=== PATIENT | female | born 1990 | race Caucasian/White ===

== ENCOUNTER → 2018-03-27 08:46 | Outpatient (CLI) | payer OTHER, MEDICAID, SELFPAY ==
--- NOTE | 2018-03-27 | DI.US.S_ITS ---
PROCEDURE: US OB >= 14 WEEKS FETUS INDICATIONS: 20 WEEK ANATOMY OUTSIDE/PRIOR DATING DATA: Last menstrual period (LMP): 10/26/2017. LMP-based estimated date of delivery (CHAD): 08/02/2018. First dating scan (date and location): 12/22/2017. Estimated date of delivery (CHAD) from first dating scan: 08/05/2018. TECHNIQUE: Real-time scanning was performed of the fetus, with image documentation and biometric measurements. Endovaginal scanning: None required COMPARISON: [facility], , OB COMPLETE 14WKS OR MORE, 02/06/2018, 8:26. [facility], , OB COMPLETE 14WKS OR MORE, 03/01/2018, 11:28. FINDINGS: General: A single living intrauterine gestation is present. Presentation: Vertex. Placenta: Placental position is anterior, without previa. Amniotic fluid index: 14.2 cm, normal range is 5-24 cm. heart rate: 165 beats per minute. Maternal cervical canal: 4.0 cm long. Normal lower limit is 2.5 cm. biometrics: Biparietal diameter: 21 weeks 6 days Head circumference: 21 weeks 4 days Abdominal circumference: 21 weeks 5 days Femur length: 21 weeks 3 days Estimated gestational age from initial scan: 21 weeks 2 days Composite gestational age from present scan: 21 weeks 5 days, normal growth Estimated weight and percentile: 436 g at the 62nd percentile Measurement variability for biometric dating: +/- 7 days from 14 weeks to 15 weeks 6 days gestation, +/- 10 days from 16 weeks to 21 weeks 6 days gestation, +/- 2 weeks from 22 weeks to 27 weeks 6 days gestation, +/- 3 weeks for 28 weeks gestation or later. weight reference: 4500 g or EFW >90/95% is considered macrosomia or large for gestational age. EFW <10% is small for gestational age. EFW 5% or less is considered intra-uterine growth restriction. Anatomic survey: Neuro: Ventricles are non-dilated at less than 10 mm. Cisterna magna is normal at 3-11 mm. Cerebellum is normal in size and morphology. Nuchal skin fold: Normal at less than 6 mm between 14-21 weeks gestational age. Face: Nose and lips, facial profile are normal. Spine: No evidence for spina bifida. Heart: 4-chambered heart is present, with normal ventricular outflow tracts. Diaphragm: Diaphragm is intact. Stomach: Left-sided stomach is present. Kidneys: No hydronephrosis. Normal is less than 5 mm in 2nd trimester, less than 7 mm in 3rd trimester. Cord: 3-vessel cord has orthotopic insertion. Bladder: Normal in size. Extremities: All 4 extremities identified. IMPRESSION: Single, live intrauterine gestation at 21 weeks 5 days gestational age, normal growth and normal anatomy. heart rate 165 bpm. Dictated by: Colin Rebollar M.D. on 03/27/2018 at 10:47 Approved by: Colin Rebollar M.D. on 03/27/2018 at 10:51
== END ==
PROVIDERS: PCP Specialist; Visit Provider Specialist
DX: Z34.92 Encounter for supervision of normal pregnancy, unspecified, second trimester (principal); Z3A.21 21 weeks gestation of pregnancy
CPT/HCPCS: 76811

== ENCOUNTER → 2018-05-05 11:44 | Outpatient (CLI) | payer OTHER, MEDICAID, SELFPAY ==
[2018-05-05 13:41] LABS: Hematocrit 33.7 % (36-46); Hemoglobin 10.7 g/dL (12.0-16.0)
[2018-05-05 15:50] LABS: GTT (PREG) 1 Hour PP 50gm Dose 87 mg/dL (76-139)
== END ==
PROVIDERS: PCP Specialist; Visit Provider Specialist
DX: Z3A.26 26 weeks gestation of pregnancy (principal)
CPT/HCPCS: 36415; 82950; 85014; 85018

== ENCOUNTER → 2018-07-05 13:49 | Outpatient (CLI) | payer OTHER, MEDICAID, SELFPAY ==
[2018-07-06 12:26] LABS: Strep Grp B PCR NEG for Grp B Strep
== END ==
PROVIDERS: PCP Specialist; Visit Provider Specialist
DX: Z3A.36 36 weeks gestation of pregnancy (principal)
CPT/HCPCS: 87653

== ENCOUNTER → 2018-07-12 12:37 | Outpatient (CLI) | payer OTHER, MEDICAID, SELFPAY | PROVIDERS: PCP Specialist; Visit Provider Specialist | DX: R35.0 Frequency of micturition (principal); R68.89 Other general symptoms and signs | CPT/HCPCS: 87086 ==

== ENCOUNTER 2018-07-28 11:24 | Inpatient (IN) | payer OTHER, MEDICAID, SELFPAY ==
[2018-07-28] MEDS: LACTATED RINGERS 1,000 ML 100 ML IV ×2 (12:00→16:46)
--- NOTE | 2018-07-28 12:48 | PM.OBHP.1 ---
OB HPI Date/Time Date of admission: 07/28/18 Date Patient Seen: 07/28/18 Time Patient Seen: 12:52 History of Present Condition Chief complaint: repeat c section 79061 : 3 Para: 1 Estimated Date of Delivery: 08/02/18 Estimated Gestational Age (weeks): 39 Narrative: Alannah Lala is a 28 year old female here for repeat section Indications Operative indications ( section): previous uterine surgery History of Present care: good care Dating criteria: LMP confirmed by 1st trimester US Ultrasounds: normal mid trimester US Obstetrical complications: none Medical complications: none Preadmission Labs Blood type: AB (+) positive -: Antibody screen: negative, GBS status: negative, HBsAG: negative, HIV: negative and RPR/VDLR: negative -: Chlamydia screen: not detected and Gonorrhea screen: not detected -: Rubella: immune PAP: Normal 1 hr GTT: 87 Prior (ies) History: 09/13/07 41 weeks failure to progress section 2017 SAB Evaluation Evaluation Baseline heart rate: 130 Variability: Moderate (11-25) monitor accelerations: Present monitor decelerations: Absent Contraction Frequency (minutes): 5 Uterine Contraction Intensity: Mild Category of Tracing: I PFSH Medical History Cholecystitis (Chronic) Surgical History History of section (Chronic) Meds Allergies Allergy/AdvReac Type Severity Reaction Status Date / Time No Known Allergies Allergy Uncoded 02/15/18 13:04 Review of Systems Review of Systems All systems reviewed & are unremarkable except as noted in HPI and below Exam Vital Signs (past 8 hours): Blood pressure 134/76, pulse of 96, temperature 97? Narrative Exam Narrative: HEENT exam within normal limits. Lungs are clear to auscultation percussion. Heart is regular rate and rhythm no S3-S4 or murmurs. Abdomen is gravid and nontender. Fundal height 39 cm. Extremities with 1+ edema. Nontender. Normal DTRs. Assessment and Plan (1) 39 weeks gestation of : Current visit: Yes Status: Acute (2) History of section, low transverse: Onset Date: 02/06/18 Current visit: No Status: Chronic Plan: Plan: Thirty-nine week gestation with prior section here for repeat section.
[2018-07-28 13:10] LABS: Add Manual Diff / Slide Review NO; Basophils Percent Auto 0.2 % (0-2); Eosinophils Percent Auto 1.5 % (2-4); Hematocrit 30.9 % (36-46); Hemoglobin 9.7 g/dL (12.0-16.0); Lymphocytes Percent Auto 16.2 % (25-40); Mean Corpuscular HGB Conc 31.2 % (30-36); Mean Corpuscular Volume 80.2 fL (80-100); Monocytes Percent Auto 7.2 % (3-14); Neutrophils Absolute Auto 7600 /uL (3000-5900); Neutrophils Percent Auto 74.9 % (50-75); Platelet Count 239 X10^3/uL (150-400); Red Blood Cell Count 3.86 X10^6/uL (4.0-5.2); Red Cell Distribution Width 16.9 % (11.6-14.8); White Blood Cell Count 10.1 X10^3/uL (4.5-11.0)
[2018-07-28] MEDS: CEFAZOLIN 2 GM/100 ML FROZ.PIGGY IV (13:12)
[2018-07-28] MEDS: LACTATED RINGERS 1,000 ML 42 ML IV (13:15)
--- NOTE | 2018-07-28 13:41 | SUR.OPER ---
Supine on Padded OR bed, head on pillow, safety belt at thigh, arms secured on padded arm boards at <90 degrees abduction. Bump under right buttock. Legs uncrossed with pillow under knees, gel pad to heels, tape over blanket to lower legs.
--- NOTE | 2018-07-28 14:00 | RT ---
I attended C section. The did not need any intervention by me.
[2018-07-28 14:14] VITALS: BP 110/73; PULSE 114; RESP 14; TEMP 36; O2SAT 99
[2018-07-28 14:19] VITALS: BP 104/66; PULSE 97; RESP 10; O2SAT 99
[2018-07-28 14:24] VITALS: BP 102/71; PULSE 96; RESP 13; O2SAT 100
[2018-07-28 14:29] VITALS: BP 111/74; PULSE 94; RESP 12; O2SAT 99
[2018-07-28] MEDS: ONDANSETRON 4 MG/2 ML INJ IV (16:00)
--- NOTE | 2018-07-28 16:07 | P.OP_ITS ---
Operative Date/Time/Diagnoses Date of procedure: 07/28/18 Time of procedure: 13:30 Pre-op diagnosis: Thirty-nine weeks with prior section Post-op diagnosis: same Procedure & Clinicians Procedure: Repeat low-transverse section Same procedure as scheduled: Yes Indications: Term with prior section Surgeon: Jann[facility] Social Worker: Mehnaz Kraft Anesthesia Type: Spinal Operative Notes Findings: Normal tubes ovaries and uterus, viable male weighing 8 lb 4 oz with Apgars of 8 and 9 Closure Type: primary Specimen(s): none sent Applied: catheter (Schmitz) Estimated Blood Loss (mL): 200 Blood products transfused: none Procedure in detail: The patient was brought to the operating room where she underwent a spinal for anesthesia. She was placed in a supine position with a left lateral tilt. A Schmitz catheter was placed. Pulsatile stockings were placed and functional throughout the case. 2 g of Ancef were given IV prior to the incision. Warming was in place. The patient was prepped and draped in usual sterile fashion. A low transverse incision was made with a scalpel and the incision was carried down to the fascial layer which was incised transversely with scissors. The midline attachments are superiorly and inferiorly. Some bleeding was controlled Bovie. The rectus muscles were in the midline and the peritoneal incision was made with no damage to internal structures. The peritoneum was incised and superiorly and inferiorly. Bladder blade was placed and a bladder flap was developed and the bladder held away from the lower uterine segment. An incision was made in the uterus with the scalpel and the incision was extended with stretching. The head was elevated out of the abdomen and with fundal pressure the baby was delivered. The was bulb suctioned for clear fluid and handed off to the warmer. Cord blood was collected. The placenta delivered spontaneously with traction. The uterus was cleaned with clean laps. The uterine incision was closed in 2 layers of 0 chromic suture the first a running locking layer the second an imbricating layer. The bladder peritoneum was repaired with 2-0 Polysorb suture. The gutters were cleaned of any remaining fluids and ovaries and tubes were observed to be normal. Adequate hemostasis was noted. The perineum was closed with 2-0 Polysorb suture. The fascia layer was closed with 0 Polysorb suture with 2 stitches. The incision was irrigated and adequate hemostasis noted. The incision was closed with interrupted 3-0 Polysorb sutures and then a subcuticular stitch of 4-0 Polysorb suture. Steri-Strips were placed. The uterus was massaged to remove any clots. The patient went to recovery room in good condion. Counts of instruments and sponges were correct. Condition: stable Disposition: Acute Care Plan for aftercare: Routine post section
[2018-07-28] MEDS: METOCLOPRAMIDE 10 MG/2 ML INJ IV (16:38)
[2018-07-28 17:28] VITALS: BP 116/69
[2018-07-28 20:12] VITALS: TEMP 36.8
[2018-07-28] MEDS: KETOROLAC 30 MG/ML VIAL IV (20:12)
[2018-07-29] MEDS: KETOROLAC 30 MG/ML VIAL IV ×2 (02:27→08:50)
[2018-07-29] MEDS: OXYCODONE/ACETAMINOPHEN 5/325 TABLET 1 TAB PO (02:28)
[2018-07-29 07:17] LABS: Add Manual Diff / Slide Review NO; Basophils Percent Auto 0.3 % (0-2); Eosinophils Percent Auto 1.5 % (2-4); Hematocrit 26.3 % (36-46); Hemoglobin 8.4 g/dL (12.0-16.0); Lymphocytes Percent Auto 15.3 % (25-40); Mean Corpuscular HGB Conc 31.8 % (30-36); Mean Corpuscular Hemoglobin 25.1 PG (26-34); Monocytes Percent Auto 9.9 % (3-14); Neutrophils Absolute Auto 8300 /uL (3000-5900); Platelet Count 214 X10^3/uL (150-400); Red Blood Cell Count 3.33 X10^6/uL (4.0-5.2); Red Cell Distribution Width 16.9 % (11.6-14.8); White Blood Cell Count 11.4 X10^3/uL (4.5-11.0)
[2018-07-29] MEDS: DOCUSATE 250 MG CAPSULE PO (08:52)
[2018-07-29 15:58] VITALS: BP 116/69; PULSE 94; RESP 17; TEMP 36.8
[2018-07-29] MEDS: IBUPROFEN 600 MG TABLET PO (16:46)
== END 2018-07-29 17:35 | disposition home or self-care (01) | DRG 540 ==
PROVIDERS: Admitting Provider Specialist; PCP Specialist; Visit Provider Specialist
PROC: 10D00Z1 Extraction of Products of Conception, Low, Open Approach (ICD-10-PCS; CPT 59514; principal; 2018-07-28 13:30)
DX: O34.211 Maternal care for low transverse scar from previous cesarean delivery (principal); Z3A.39 39 weeks gestation of pregnancy; Z37.0 Single live birth
CPT/HCPCS: 36415; 59050; 59514; 85025; 86850; 86900; 86901; J0690; J1885; J2274; J2405; J2590; J2765

== ENCOUNTER 2019-05-10 13:56 | Emergency (ER) | payer OTHER, MEDICAID, SELFPAY ==
[2019-05-10 14:00] VITALS: BP 109/76; PULSE 76; RESP 19; TEMP 36.7; O2SAT 99; BMI 33.3
--- NOTE | 2019-05-10 14:03 | DI.RAD.S_ITS ---
PROCEDURE: XR ELBOW RT MIN 3V INDICATIONS: fall pain TECHNIQUE: 3 views of the elbow were acquired. COMPARISON: None. FINDINGS: Bones: Acute spiral fracture involving distal humeral shaft is seen with dorsal displacement at fracture site. No elbow fracture or dislocation. No suspicious bony lesions. Soft tissues: No elbow joint effusion. No suspicious soft tissue calcifications. IMPRESSION: Acute displaced spiral fracture involving distal humeral shaft. Dictated by: Shamar Mayfield M.D. on 05/10/2019 at 13:34 Approved by: Shamar Mayfield M.D. on 05/10/2019 at 13:35
--- NOTE | 2019-05-10 14:03 | DI.RAD.S_ITS ---
PROCEDURE: XR SHOULDER RT MIN 2V INDICATIONS: pain fall TECHNIQUE: 3 views of the shoulder were acquired. COMPARISON: None. FINDINGS: Bones: No fractures or dislocations. No suspicious bony lesions. Visualized ribs appear intact. Soft tissues: No suspicious soft tissue calcifications. IMPRESSION: No acute shoulder fracture or dislocation. Dictated by: Shamar Mayfield M.D. on 05/10/2019 at 13:33 Approved by: Shamar Mayfield M.D. on 05/10/2019 at 13:34
--- NOTE | 2019-05-10 14:05 | ED.UPPEXIN ---
HPI - Extremity Injury (Upper) General Chief Complaint: Extremity Injury, Upper Stated Complaint: tripped and fell,cannot move arm/shoulder R side Time Seen by Provider: 05/10/19 14:03 Source: patient Mode of arrival: ambulatory Limitations: no limitations History of Present Illness HPI narrative: Patient is a 28-year-old who presents after a ground level fall with right shoulder and right elbow pain. She tripped going up a stair. Fell with a hand stretched out. It hurts whenever she supinates or pronates also having pain on her shoulder. No numbness or tingling. She is currently breast-feeding. Related Data Previous Rx's Medication Instructions Recorded docusate sodium 250 mg PO DAILY #20 cap 07/29/18 ferrous gluconate 324 mg PO DAILY #30 tab 07/29/18 ibuprofen 600 mg PO Q6HR PRN #30 tab 07/29/18 oxycodone-acetaminophen 2 tab PO Q4HR PRN #30 tab 07/29/18 metoclopramide 5 mg tablet 5 mg PO TID #30 tab 10/02/18 hydrocodone-acetaminophen [[place]] 1 tab PO Q4-6H PRN #14 tab 05/10/19 Allergies Allergy/AdvReac Type Severity Reaction Status Date / Time No Known Allergies Allergy Uncoded 02/15/18 13:04 Review of Systems Review of Systems GENERAL: Denies chills,fever HEENT: Denies throat pain RESPIRATORY: Denies dyspnea, cough, wheezing CARDIOVASCULAR: Denies chest pain, palpitations GASTROINTESTINAL: Denies nausea, vomiting MUSCULOSKELETAL: See HPI SKIN: No rash, no laceration, no pruritus NEUROLOGIC: Denies weakness, dizziness, headache, numbness 8 point review of systems is negative except for those stated above and HPI PFSH Medical History (Updated 05/10/19 @ 15:58 by Lilo Hdz DO) Cholecystitis (Chronic) Surgical History (Updated 07/28/18 @ 12:59 by Janneth Dueñas MD) History of section (Chronic) Social History Smoking Status: Never smoker Social History Smoking Status: Never smoker Exam Initial Vital Signs Initial Vital Signs: Vital Signs Temperature 98.1 F 05/10/19 14:00 Pulse Rate 76 05/10/19 14:00 Respiratory Rate 19 05/10/19 14:00 Blood Pressure 109/76 05/10/19 14:00 Pulse Oximetry 99 05/10/19 14:00 GENERAL: Well-appearing, well-nourished and in no acute distress. CARDIOVASCULAR: peripheral pulses in tact, cap refill <2 sec RESPIRATORY: No respiratory distress, speaks in full sentences without difficulty EXTREMITIES: Normal range of motion, no clubbing or edema. Neurovascularly intact Right upper extremity no gross bony deformity tender superior epicondyles no contusion or erythema pain with supination pronation. Neurovascularly intact. Able flex and extend wrist good abduction of fingers. Taste Tester strength equal bilaterally. Shoulder AC area tender but no step-offs sensation over the deltoid intact. NEUROLOGICAL: Cranial nerves II through XII grossly intact. Normal gait and speech. SKIN: Warm, dry, no petechiae, no rashes or lesions. Procedures Orthopedic Splinting/Casting Injury #1: Side: right Upper Extremity Injury Location: upper arm Upper Extremity Immobilizer: sling/shoulder immobilizer (and Coaptation splint) Post splinting neuro exam: intact Post splinting vascular exam: intact Placed by: Nursing Course Orders Ordered: ED Orders 05/10/19 14:03 XR elbow RT min 3V Stat XR shoulder RT min 2V Stat 05/10/19 14:17 XR humerus RT 2V Stat Discontinued Medications Hydromorphone HCl (Dilaudid) 1 mg SUBCUT Q4H PRN PRN Reason: Pain, Severe (7-10) Last Admin: 05/10/19 14:48 Dose: 1 mg Hydromorphone HCl (Dilaudid) 1 mg IM NOW ONE Stop: 05/10/19 15:34 Last Admin: 05/10/19 15:38 Dose: 1 mg Ibuprofen (Advil) 800 mg PO NOW ONE Stop: 05/10/19 14:04 Last Admin: 05/10/19 14:24 Dose: 800 mg Vital Signs - 8 hr 05/10/19 14:00 05/10/19 15:50 Temperature 98.1 F Pulse Rate 76 85 Respiratory Rate 19 18 Blood Pressure 109/76 Blood Pressure [Left Arm] 123/73 Pulse Oximetry 99 94 MDM - Extremity Injury (Upper) Imaging Data right shoulder: Radiologist's impression: PROCEDURE: XR SHOULDER RT MIN 2V INDICATIONS: pain fall TECHNIQUE: 3 views of the shoulder were acquired. COMPARISON: None. FINDINGS: Bones: No fractures or dislocations. No suspicious bony lesions. Visualized ribs appear intact. Soft tissues: No suspicious soft tissue calcifications. IMPRESSION: No acute shoulder fracture or dislocation. Dictated by: Shamar Mayfield M.D. on 05/10/2019 at 13:33 right elbow: Radiologist's impression: PROCEDURE: XR ELBOW RT MIN 3V INDICATIONS: fall pain TECHNIQUE: 3 views of the elbow were acquired. COMPARISON: None. FINDINGS: Bones: Acute spiral fracture involving distal humeral shaft is seen with dorsal displacement at fracture site. No elbow fracture or dislocation. No suspicious bony lesions. Soft tissues: No elbow joint effusion. No suspicious soft tissue calcifications. IMPRESSION: Acute displaced spiral fracture involving distal humeral shaft. Dictated by: Shamar Mayfield M.D. on 05/10/2019 at 13:34 right humerus: Radiologist's impression: PROCEDURE: XR HUMERUS RT 2V INDICATIONS: pain fall TECHNIQUE: 2 views of the humerus were acquired. COMPARISON: None. FINDINGS: Bones: Acute spiral fracture involving distal right humeral shaft with slight lateral and dorsal displacement and angulation at fracture site. No suspicious bony lesions. Soft tissues: No suspicious soft tissue calcifications. IMPRESSION: Acute slightly displaced spiral fracture involving distal right humeral shaft. Dictated by: Shamar Mayfield M.D. on 05/10/2019 at 13:[address] [facility] Narrative Medical decision making narrative: Dr. Agudelo has reviewed x-rays himself. Agrees with splinting and follow up outpatient. This time unlikely to need surgery. Discharge Plan Departure Patient Disposition: Home Clinical Impression: Fracture of right humerus Qualifiers: Encounter type: initial encounter Humerus Location: distal Fracture type: closed Fracture morphology: other fracture Fracture alignment: displaced Qualified Code(s): S42.491A - Other displaced fracture of lower end of right humerus, initial encounter for closed fracture Discharge Date/Time: 05/10/19 16:14 Interventions: ED Discharge Assessment Last Done: 05/10/19 16:13 Instructions: Elbow Fracture, Humeral Shaft Fracture Activity Restrictions/Additional Instructions: *You have been diagnosed with right humerus fracture *What to do: Keep arm in sling at all times including while showering and sleeping. I *Continue to take medications as directed [place] 1 tablet every 6 hours if needed for pain *Follow up with Orthopedics. Call tomorrow to schedule appointment *Return to ER if you should have increasing numbness or tingling, inability to move wrist, worsening pain or any new, worsening or concerning symptoms Prescriptions: New hydrocodone-acetaminophen [[place]] 5-325 mg tablet 1 tab PO Q4-6H PRN (Reason: pain) Qty: 14 RF: 0 No Action metoclopramide HCl 5 mg tablet 5 mg PO TID Qty: 30 RF: 3 oxycodone-acetaminophen 5-325 mg Tablet 2 tab PO Q4HR PRN (Reason: Pain, Severe (7-10)) Qty: 30 RF: 0 ibuprofen 600 mg Tablet 600 mg PO Q6HR PRN (Reason: As Needed For Fever/Mild Pain) Qty: 30 RF: 0 docusate sodium 250 mg Capsule 250 mg PO DAILY Qty: 20 RF: 0 ferrous gluconate 324 mg (37.5 mg iron) tablet 324 mg PO DAILY Qty: 30 RF: 0 Referrals: [facility] [Provider Group] Janneth Dueñas MD [Primary Care Provider] -
--- NOTE | 2019-05-10 14:17 | DI.RAD.S_ITS ---
PROCEDURE: XR HUMERUS RT 2V INDICATIONS: pain fall TECHNIQUE: 2 views of the humerus were acquired. COMPARISON: None. FINDINGS: Bones: Acute spiral fracture involving distal right humeral shaft with slight lateral and dorsal displacement and angulation at fracture site. No suspicious bony lesions. Soft tissues: No suspicious soft tissue calcifications. IMPRESSION: Acute slightly displaced spiral fracture involving distal right humeral shaft. Dictated by: Shamar Mayfield M.D. on 05/10/2019 at 13:35 Approved by: Shamar Mayfield M.D. on 05/10/2019 at 13:37
[2019-05-10] MEDS: IBUPROFEN 400 MG TABLET 800 MG PO (14:24)
[2019-05-10] MEDS: HYDROMORPHONE 2 MG INJ 1 MG SUBCUT (14:48)
[2019-05-10] MEDS: HYDROMORPHONE 1 MG INJ IM (15:38)
[2019-05-10 15:50] VITALS: BP 123/73; PULSE 85; RESP 18; O2SAT 94
== END 2019-05-10 16:14 | disposition home or self-care (01) ==
PROVIDERS: Emergency Provider Emergency Medicine; PCP Specialist
DX: S42.491A Other displaced fracture of lower end of right humerus, initial encounter for closed fracture (principal); W01.0XXA Fall on same level from slipping, tripping and stumbling without subsequent striking against object, initial encounter
CPT/HCPCS: 73030; 73060; 73080; 96372; 99282; 99283; J1170

== ENCOUNTER 2019-05-13 14:53 | Emergency (ER) | payer OTHER, MEDICAID, SELFPAY ==
[2019-05-13 15:12] VITALS: BP 141/89; PULSE 96; RESP 18; TEMP 36.6; O2SAT 97; BMI 33.3
[2019-05-13] MEDS: KETOROLAC 60 MG/2 ML VIAL IM (16:14)
--- NOTE | 2019-05-13 19:47 | ED.UPPEXIN ---
HPI - Extremity Injury (Upper) <MERCEDES Lockwood - Last Filed: 05/13/19 20:40> General Chief Complaint: Extremity Injury, Upper Stated Complaint: Broke rt arm,losing mobility and numbness Time Seen by Provider: 05/13/19 15:47 Source: patient Mode of arrival: ambulatory Limitations: no limitations History of Present Illness HPI narrative: The patient is a 28-year-old female nonsmoker with history of right humerus fracture who presents with a chief complaint of increasing numbness and decreased wrist mobility. She was seen at this facility on 05/10 for a ground level fall which was a FOOSH injury to her right arm. She was found to have an acute displaced spiral fracture involving the distal humeral shaft. She was placed in a long-arm splint. At that point she could flex and extend her wrist. She states that she has been increasingly weak in her hand, is no longer able to extend her wrist. She states that she has some numbness in the top of her hand. She denies any recent trauma since her initial fall. Related Data Home Medications Medication Instructions Recorded Confirmed hydrocodone-acetaminophen 1 tab PO Q4-6H PRN 05/13/19 05/13/19 Previous Rx's Medication Instructions Recorded docusate sodium 250 mg PO DAILY #20 cap 07/29/18 ferrous gluconate 324 mg PO DAILY #30 tab 07/29/18 ibuprofen 600 mg PO Q6HR PRN #30 tab 07/29/18 oxycodone-acetaminophen 2 tab PO Q4HR PRN #30 tab 07/29/18 metoclopramide 5 mg tablet 5 mg PO TID #30 tab 10/02/18 hydrocodone-acetaminophen [[place]] 1 tab PO Q4-6H PRN #14 tab 05/10/19 hydrocodone-acetaminophen 1 tab PO Q4-6H PRN #10 tab 05/13/19 ketorolac 10 mg PO TID PRN #20 tab 05/13/19 Allergies Allergy/AdvReac Type Severity Reaction Status Date / Time No Known Drug Allergies Allergy Verified 05/13/19 16:06 Review of Systems <MERCEDES Lockwood - Last Filed: 05/13/19 20:40> Review of Systems GENERAL: Denies chills, fatigue, malaise, fever, sweats. HEENT: Denies sinus pain, ear pain, sore throat, difficulty swallowing, dizziness. RESPIRATORY: Denies dyspnea, cough, wheezing, hemoptysis, sputum. CARDIOVASCULAR: Denies chest pain, palpitations, orthopnea, edema, GASTROINTESTINAL: Denies nausea, vomiting, abdominal pain, diarrhea, constipation, melena. : Denies dysuria, frequency, incontinence, hematuria, urinary retention. MUSCULOSKELETAL: See HPI SKIN: See HPI NEUROLOGIC: Denies weakness, headache, numbness, change in speech, confusion, seizures, incoordination. PSYCHIATRIC: No concerning psychosocial issues. 12 point review of systems is negative except for those stated above PFS <MERCEDES Lockwood - Last Filed: 05/13/19 20:40> Medical History Cholecystitis (Chronic) Surgical History History of section (Chronic) Social History Smoking Status: Never smoker Social History Smoking Status: Never smoker Exam <MERCEDES Lockwood - Last Filed: 05/13/19 20:40> Narrative Exam Narrative: GENERAL: This is a well-nourished, well-developed patient, in mild distress. HEAD: Atraumatic. Normocephalic. No temporal or scalp tenderness. EYES: Pupils equal round and reactive. Extraocular motions intact. No scleral icterus. No injection or drainage. ENT: Nose without bleeding, purulent drainage or septal hematoma. Throat without erythema, tonsillar hypertrophy or exudate. Uvula midline. Airway patent. NECK: Trachea midline. No JVD or lymphadenopathy. Supple, nontender, no meningeal signs. CARDIOVASCULAR: Regular rate and rhythm without murmurs, gallops, or rubs. RESPIRATORY: Clear to auscultation. Breath sounds equal bilaterally. No wheezes, rales, or rhonchi. GASTROINTESTINAL: Abdomen soft, non-tender, nondistended. No hepato-splenomegaly, or palpable masses. No guarding. EXTREMITIES: Pain to palpation generalized right elbow fever and patient is able to flex right wrist, but not extend right wrist. Hand is warm, positive radial pulse. Patient is able to corporate safety manager hand. Capillary refill less than 2 seconds. BACK: Nontender without deformity or crepitance. No flank tenderness. NEURO: AOx3. SKIN: No rash or erythema. Initial Vital Signs Initial Vital Signs: Vital Signs Temperature 97.8 F 05/13/19 15:12 Pulse Rate 96 H 05/13/19 15:12 Respiratory Rate 18 05/13/19 15:12 Blood Pressure 141/89 H 05/13/19 15:12 Pulse Oximetry 97 05/13/19 15:12 <Onel Hung DO - Last Filed: 05/13/19 20:54> Initial Vital Signs Initial Vital Signs: Vital Signs Temperature 97.8 F 05/13/19 15:12 Pulse Rate 96 H 05/13/19 15:12 Respiratory Rate 18 05/13/19 15:12 Blood Pressure 141/89 H 05/13/19 15:12 Pulse Oximetry 97 05/13/19 15:12 Course <THANG LockwoodBC - Last Filed: 05/13/19 20:40> Orders Ordered: Discontinued Medications Ketorolac Tromethamine (Toradol) 60 mg IM NOW ONE Stop: 05/13/19 16:05 Last Admin: 05/13/19 16:14 Dose: 60 mg Consultations Consultation #1: I spoke with Dr. Agudelo about the patient; he is familiar with her case as he was consulted during the initial injury. I discussed the fact that she is unable to extend her right wrist and I was concerned about her nerve. 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 He states that mobility precautions need to be rediscussed with the patient, but there is no acute intervention at this point time. He states that she should follow up with him as scheduled in the next few days. He states that she may eventually need to be referred to a micro vascular surgeon. Time: 18:00 Vital Signs - 8 hr 05/13/19 15:12 05/13/19 20:16 Temperature 97.8 F Pulse Rate 96 H 84 Respiratory Rate 18 16 Blood Pressure 141/89 H Blood Pressure [Left Arm] 134/78 Pulse Oximetry 97 95 <Onel Hung DO - Last Filed: 05/13/19 20:54> Orders Ordered: Discontinued Medications Ketorolac Tromethamine (Toradol) 60 mg IM NOW ONE Stop: 05/13/19 16:05 Last Admin: 05/13/19 16:14 Dose: 60 mg Vital Signs - 8 hr 05/13/19 15:12 05/13/19 20:16 Temperature 97.8 F Pulse Rate 96 H 84 Respiratory Rate 18 16 Blood Pressure 141/89 H Blood Pressure [Left Arm] 134/78 Pulse Oximetry 97 95 MDM - Extremity Injury (Upper) <Delia Alex, [employer]ELDING MACHINE [employer]- - Last Filed: 05/13/19 20:40> [facility] Narrative Medical decision making narrative: The patient is a 28 year female who presents with numbness and decreased motion in her wrist after a distal humeral fracture. She is currently in a sling, with a full arm splint. Her hand is warm, she has positive radial pulses. His given her exam, I am decreased about a radial nerve injury. I spoke with Dr. Agudelo from [facility], who discussed radial nerve palsy and that the patient may have permanent injury. He discussed no intervention at this point time in to discuss decreased motion etc. I discussed this at length with the patient. I spoke with Dr. Ramirez from [facility], who stated that the patient could get a 2nd x-ray to evaluate for further displacement, but otherwise no interventions at this time and thus there is need to reduce. The patient declined any 2nd x-rays today. I discussed at length follow up with Orthopedics as scheduled. Discussed coming back to the ER for any acute concerns. I did discuss the possibility of a permanent nerve injury. However two Orthopedics concur on no immediate intervention at this point. The patient declined further x-rays and evaluation. I did give her more pain medicine. Patient states plan of follow-up as well as return precautions. No questions or concerns upon discharge. Patient remains with long-arm splint with sling. Discharge Plan Departure Patient Disposition: Home Clinical Impression: Fracture of right humerus Qualifiers: Encounter type: subsequent encounter Humerus Location: distal Fracture type: closed Fracture morphology: other fracture Fracture alignment: displaced Fracture healing: with routine healing Qualified Code(s): S42.491D - Other displaced fracture of lower end of right humerus, subsequent encounter for fracture with routine healing Acute radial nerve palsy Qualifiers: Laterality: right Qualified Code(s): G56.31 - Lesion of radial nerve, right upper limb Discharge Date/Time: 05/13/19 20:40 Interventions: ED Discharge Assessment Last Done: 05/13/19 20:39 Activity Restrictions/Additional Instructions: I am concerned that you have injured your radial nerve. Please follow-up with [facility]. Please do not move your arm. Please keep it in a splint. Keep the sling on. You have declined x-rays today. Please come back to the ER for any acute concerns such as decreased circulation her hand. Please follow up with Orthopedics. I have given you more pain medicine. Please do not take the Toradol with your Aleve or ibuprofen or other NSAIDs Prescriptions: New hydrocodone-acetaminophen 5-325 mg tablet 1 tab PO Q4-6H PRN (Reason: pain) Qty: 10 RF: 0 ketorolac 10 mg tablet 10 mg PO TID PRN (Reason: pain) Qty: 20 RF: 0 No Action metoclopramide HCl 5 mg tablet 5 mg PO TID Qty: 30 RF: 3 oxycodone-acetaminophen 5-325 mg Tablet 2 tab PO Q4HR PRN (Reason: Pain, Severe (7-10)) Qty: 30 RF: 0 ibuprofen 600 mg Tablet 600 mg PO Q6HR PRN (Reason: As Needed For Fever/Mild Pain) Qty: 30 RF: 0 docusate sodium 250 mg Capsule 250 mg PO DAILY Qty: 20 RF: 0 ferrous gluconate 324 mg (37.5 mg iron) tablet 324 mg PO DAILY Qty: 30 RF: 0 hydrocodone-acetaminophen [[place]] 5-325 mg tablet 1 tab PO Q4-6H PRN (Reason: pain) Qty: 14 RF: 0 hydrocodone-acetaminophen 5-325 mg Tablet 1 tab PO Q4-6H PRN (Reason: Pain (Scale Score 7-10)) RF: 0 Referrals: [facility] [Provider Group] <Onel Hung DO - Last Filed: 05/13/19 20:54> [facility] Rich Attestation: I was available for consultation during this patient's emergency department encounter
--- NOTE | 2019-05-13 19:50 | ED_ITS ---
HPI - Extremity Injury (Upper) <MERCEDSE Lockwood - Last Filed: 05/13/19 20:40> General Chief Complaint: Extremity Injury, Upper Stated Complaint: Broke rt arm,losing mobility and numbness Time Seen by Provider: 05/13/19 15:47 Source: patient Mode of arrival: ambulatory Limitations: no limitations History of Present Illness HPI narrative: The patient is a 28-year-old female nonsmoker with history of right humerus fracture who presents with a chief complaint of increasing numbness and decreased wrist mobility. She was seen at this facility on 05/10 for a ground level fall which was a FOOSH injury to her right arm. She was found to have an acute displaced spiral fracture involving the distal humeral shaft. She was placed in a long-arm splint. At that point she could flex and extend her wrist. She states that she has been increasingly weak in her hand, is no longer able to extend her wrist. She states that she has some numbness in the top of her hand. She denies any recent trauma since her initial fall. Related Data Home Medications Medication Instructions Recorded Confirmed hydrocodone-acetaminophen 1 tab PO Q4-6H PRN 05/13/19 05/13/19 Previous Rx's Medication Instructions Recorded docusate sodium 250 mg PO DAILY #20 cap 07/29/18 ferrous gluconate 324 mg PO DAILY #30 tab 07/29/18 ibuprofen 600 mg PO Q6HR PRN #30 tab 07/29/18 oxycodone-acetaminophen 2 tab PO Q4HR PRN #30 tab 07/29/18 metoclopramide 5 mg tablet 5 mg PO TID #30 tab 10/02/18 hydrocodone-acetaminophen [[place]] 1 tab PO Q4-6H PRN #14 tab 05/10/19 hydrocodone-acetaminophen 1 tab PO Q4-6H PRN #10 tab 05/13/19 ketorolac 10 mg PO TID PRN #20 tab 05/13/19 Allergies Allergy/AdvReac Type Severity Reaction Status Date / Time No Known Drug Allergies Allergy Verified 05/13/19 16:06 Review of Systems <MERCEDES Lockwood - Last Filed: 05/13/19 20:40> Review of Systems GENERAL: Denies chills, fatigue, malaise, fever, sweats. HEENT: Denies sinus pain, ear pain, sore throat, difficulty swallowing, dizziness. RESPIRATORY: Denies dyspnea, cough, wheezing, hemoptysis, sputum. CARDIOVASCULAR: Denies chest pain, palpitations, orthopnea, edema, GASTROINTESTINAL: Denies nausea, vomiting, abdominal pain, diarrhea, constipation, melena. : Denies dysuria, frequency, incontinence, hematuria, urinary retention. MUSCULOSKELETAL: See HPI SKIN: See HPI NEUROLOGIC: Denies weakness, headache, numbness, change in speech, confusion, seizures, incoordination. PSYCHIATRIC: No concerning psychosocial issues. 12 point review of systems is negative except for those stated above PFS <MERCEDES Lockwood - Last Filed: 05/13/19 20:40> Medical History Cholecystitis (Chronic) Surgical History History of section (Chronic) Social History Smoking Status: Never smoker Social History Smoking Status: Never smoker Exam <MERCEDES Lockwood - Last Filed: 05/13/19 20:40> Narrative Exam Narrative: GENERAL: This is a well-nourished, well-developed patient, in mild distress. HEAD: Atraumatic. Normocephalic. No temporal or scalp tenderness. EYES: Pupils equal round and reactive. Extraocular motions intact. No scleral icterus. No injection or drainage. ENT: Nose without bleeding, purulent drainage or septal hematoma. Throat without erythema, tonsillar hypertrophy or exudate. Uvula midline. Airway patent. NECK: Trachea midline. No JVD or lymphadenopathy. Supple, nontender, no meningeal signs. CARDIOVASCULAR: Regular rate and rhythm without murmurs, gallops, or rubs. RESPIRATORY: Clear to auscultation. Breath sounds equal bilaterally. No wheezes, rales, or rhonchi. GASTROINTESTINAL: Abdomen soft, non-tender, nondistended. No hepato- splenomegaly, or palpable masses. No guarding. EXTREMITIES: Pain to palpation generalized right elbow fever and patient is able to flex right wrist, but not extend right wrist. Hand is warm, positive radial pulse. Patient is able to j2ee application developer hand. Capillary refill less than 2 seconds. BACK: Nontender without deformity or crepitance. No flank tenderness. NEURO: AOx3. SKIN: No rash or erythema. Initial Vital Signs Initial Vital Signs: Vital Signs Temperature 97.8 F 05/13/19 15:12 Pulse Rate 96 H 05/13/19 15:12 Respiratory Rate 18 05/13/19 15:12 Blood Pressure 141/89 H 05/13/19 15:12 Pulse Oximetry 97 05/13/19 15:12 <Onel Hung DO - Last Filed: 05/13/19 20:54> Initial Vital Signs Initial Vital Signs: Vital Signs Temperature 97.8 F 05/13/19 15:12 Pulse Rate 96 H 05/13/19 15:12 Respiratory Rate 18 05/13/19 15:12 Blood Pressure 141/89 H 05/13/19 15:12 Pulse Oximetry 97 05/13/19 15:12 Course <RASHAD Lockwood-BC - Last Filed: 05/13/19 20:40> Orders Ordered: Discontinued Medications Ketorolac Tromethamine (Toradol) 60 mg IM NOW ONE Stop: 05/13/19 16:05 Last Admin: 05/13/19 16:14 Dose: 60 mg Consultations Consultation #1: I spoke with Dr. Agudelo about the patient; he is familiar with her case as he was consulted during the initial injury. I discussed the fact that she is unable to extend her right wrist and I was concerned about her nerve. 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 He states that mobility precautions need to be rediscussed with the patient, but there is no acute intervention at this point time. He states that she should follow up with him as scheduled in the n ext few days. He states that she may eventually need to be referred to a micro vascular surgeon. Time: 18:00 Vital Signs - 8 hr 05/13/19 15:12 05/13/19 20:16 Temperature 97.8 F Pulse Rate 96 H 84 Respiratory Rate 18 16 Blood Pressure 141/89 H Blood Pressure [Left Arm] 134/78 Pulse Oximetry 97 95 <Onel Hung DO - Last Filed: 05/13/19 20:54> Orders Ordered: Discontinued Medications Ketorolac Tromethamine (Toradol) 60 mg IM NOW ONE Stop: 05/13/19 16:05 Last Admin: 05/13/19 16:14 Dose: 60 mg Vital Signs - 8 hr 05/13/19 15:12 05/13/19 20:16 Temperature 97.8 F Pulse Rate 96 H 84 Respiratory Rate 18 16 Blood Pressure 141/89 H Blood Pressure [Left Arm] 134/78 Pulse Oximetry 97 95 MDM - Extremity Injury (Upper) <Delia Johnson, [employer] - Last Filed: 05/13/19 20:40> MDM Narrative Medical decision making narrative: The patient is a 28 year female who presents with numbness and decreased motion in her wrist after a distal humeral fracture. She is currently in a sling, with a full arm splint. Her hand is warm, she has positive radial pulses. His given her exam, I am decreased about a radial nerve injury. I spoke with Dr. Agudelo from [facility], who discussed radial nerve palsy and that the patient may have permanent injury. He discussed no intervention at this point time in to discuss decreased motion etc. I discussed this at length with the patient. I spoke with Dr. Ramirez from [facility], who stated that the patient could get a 2nd x-ray to evaluate for further displacement, but otherwise no interventions at this time and thus there is need to reduce. The patient declined any 2nd x-rays today. I discussed at length follow up with Orthopedics as scheduled. Discussed coming back to the ER for any acute concerns. I did discuss the possibility of a permanent nerve injury. However two Orthopedics concur on no immediate intervention at this point. The patient declined further x-rays and evaluation. I did give her more pain medicine. Patient states plan of follow-up as well as return precautions. No questions or concerns upon discharge. Patient remains with long-arm splint with sling. Discharge Plan Departure Patient Disposition: Home Clinical Impression: Fracture of right humerus Qualifiers: Encounter type: subsequent encounter Humerus Location: distal Fracture type: closed Fracture morphology: other fracture Fracture alignment: displaced Fracture healing: with routine healing Qualified Code(s): S42.491D - Other displaced fracture of lower end of right humerus, subsequent encounter for fracture with routine healing Acute radial nerve palsy Qualifiers: Laterality: right Qualified Code(s): G56.31 - Lesion of radial nerve, right upper limb Discharge Date/Time: 05/13/19 20:40 Interventions: ED Discharge Assessment Last Done: 05/13/19 20:39 Activity Restrictions/Additional Instructions: I am concerned that you have injured your radial nerve. Please follow-up with [facility]. Please do not move your arm. Please keep it in a splint. Keep the sling on. You have declined x-rays today. Please come back to the ER for any acute concerns such as decreased circulation her hand. Please follow up with Orthopedics. I have given you more pain medicine. Please do not take the Toradol with your Aleve or ibuprofen or other NSAIDs Prescriptions: New hydrocodone-acetaminophen 5-325 mg tablet 1 tab PO Q4-6H PRN (Reason: pain) Qty: 10 RF: 0 ketorolac 10 mg tablet 10 mg PO TID PRN (Reason: pain) Qty: 20 RF: 0 No Action metoclopramide HCl 5 mg tablet 5 mg PO TID Qty: 30 RF: 3 oxycodone-acetaminophen 5-325 mg Tablet 2 tab PO Q4HR PRN (Reason: Pain, Severe (7-10)) Qty: 30 RF: 0 ibuprofen 600 mg Tablet 600 mg PO Q6HR PRN (Reason: As Needed For Fever/Mild Pain) Qty: 30 RF: 0 docusate sodium 250 mg Capsule 250 mg PO DAILY Qty: 20 RF: 0 ferrous gluconate 324 mg (37.5 mg iron) tablet 324 mg PO DAILY Qty: 30 RF: 0 hydrocodone-acetaminophen [[place]] 5-325 mg tablet 1 tab PO Q4-6H PRN (Reason: pain) Qty: 14 RF: 0 hydrocodone-acetaminophen 5-325 mg Tablet 1 tab PO Q4-6H PRN (Reason: Pain (Scale Score 7-10)) RF: 0 Referrals: [facility] [Provider Group] <Onel Hung DO - Last Filed: 05/13/19 20:54> [facility] Rich Attestation: I was available for consultation during this patient's emergency department encounter
[2019-05-13 20:16] VITALS: BP 134/78; PULSE 84; RESP 16; O2SAT 95
--- NOTE | 2019-05-13 20:17 | PC.NURSE ---
Placed waist strap on patient's existing sling to provide more stability. Patient states this feels much more comfortable.
== END 2019-05-13 20:40 | disposition home or self-care (01) ==
PROVIDERS: Emergency Provider Nurse Practitioner Family; Family Provider Specialist
DX: S42.491D Other displaced fracture of lower end of right humerus, subsequent encounter for fracture with routine healing (principal); W01.0XXD Fall on same level from slipping, tripping and stumbling without subsequent striking against object, subsequent encounter; G56.31 Lesion of radial nerve, right upper limb
CPT/HCPCS: 96372; 99282; 99283; J1885

== ENCOUNTER 2020-08-03 02:26 | Emergency (ER) | payer OTHER, MEDICAID, SELFPAY ==
[2020-08-03 02:26] VITALS: BP 164/95; PULSE 123; RESP 16; TEMP 36.8; O2SAT 96; BMI 34.9
[2020-08-03 02:38] LABS: Bacteria Urine None Seen; RBC Urine None Seen (0-5/HPF)
[2020-08-03 02:39] LABS: Appearance Urine UA CLEAR; Bilirubin Urine UA NEGATIVE (NEGATIVE); Ketones Urine UA NEGATIVE (NEGATIVE); Leukocyte Esterase Urine UA 2+ (NEGATIVE); Occult Blood Urine UA 2+ (Negative); Pregnancy Test Urine Negative (Negative); Specific Gravity Urine UA <=1.005 (1.000-1.035)
--- NOTE | 2020-08-03 02:45 | ED_ITS ---
HPI - General Adult General Chief complaint: Urogenital-Female Stated complaint: UTI Time Seen by Provider: 08/03/20 02:26 Source: patient Mode of arrival: Ambulatory Limitations: no limitations History of Present Illness HPI narrative: 30-year-old female here for evaluation which she thinks is urinary tract infection. For the past several days has had urinary urgency and frequency. She states that she gets multiple urinary tract infections however she normally treats them at home with fluids and cranberry juice and azo. She states the last time she was treated with antibiotics was about 2 years ago however her last urinary tract infection was 2 weeks ago. No fevers. No back pain. Did take azo prior to arrival. States that her normal treatment at home was not working. Related Data Home Medications Medication Instructions Recorded Confirmed hydrocodone-acetaminophen 1 tab PO Q4-6H PRN 05/13/19 05/13/19 Previous Rx's Medication Instructions Recorded docusate sodium 250 mg PO DAILY #20 cap 07/29/18 ferrous gluconate 324 mg PO DAILY #30 tab 07/29/18 ibuprofen 600 mg PO Q6HR PRN #30 tab 07/29/18 oxycodone-acetaminophen 2 tab PO Q4HR PRN #30 tab 07/29/18 metoclopramide HCl 5 mg tablet 5 mg PO TID #30 tab 10/02/18 hydrocodone-acetaminophen [[place]] 1 tab PO Q4-6H PRN #14 tab 05/10/19 hydrocodone-acetaminophen 1 tab PO Q4-6H PRN #10 tab 05/13/19 nitrofurantoin monohyd/m-cryst 100 mg PO Q12H 5 Days #10 cap 08/03/20 [Macrobid] Allergies Allergy/AdvReac Type Severity Reaction Status Date / Time No Known Drug Allergies Allergy Verified 05/13/19 16:06 Review of Systems Constitutional Constitutional: Denies fever(s) Cardiovascular Cardiovascular: Denies chest pain and Denies dyspnea Respiratory Respiratory: Denies dyspnea Gastrointestinal Gastrointestinal: Denies abdominal pain and Denies nausea Genitourinary Genitourinary: Reports dysuria, Reports urinary hesitancy and Reports urinary urgency Genitourinary: Reports dysuria, Reports urinary hesitancy, Reports urinary urgency and Denies vaginal discharge Musculoskeletal Musculoskeletal: Denies myalgias Integumentary/Breasts Skin/Breast: Denies rash Neurologic Neurologic: Denies behavioral changes Psychiatric Psychiatric: Denies behavioral changes Hematologic/Lymphatic Hematologic/Lymphatic: Denies easy bleeding and Denies easy bruising Allergic/Immunologic Allergic/Immunologic: Denies urticaria Patient History Medical History Cholecystitis (Chronic) Surgical History History of section (Chronic) Social History Smoking Status: Never smoker Smoking Status: Never smoker alcohol intake frequency: other Substance Use Type: does not use Exam Initial Vital Signs Initial Vital Signs: Vital Signs Temperature 98.3 F 08/03/20 02:26 Pulse Rate 123 H 08/03/20 02:26 Respiratory Rate 16 08/03/20 02:26 Blood Pressure 164/95 H 08/03/20 02:26 Pulse Oximetry 96 08/03/20 02:26 Const General: cooperative and comfortable Limitations: mental status not altered HENMT Head: normal to inspection and normocephalic Resp Effort & Inspection: normal respiratory effort Cardio Rate: tachycardic Skin Lesions: no lesions Rashes: no rashes Neuro General: patient alert, patient awake and patient oriented x3 Cognition: normal cognition Speech: speech normal Extrem General: normal to inspection and capillary refill normal Psych Appearance: grossly normal and well kempt Course Orders Ordered: ED Orders 08/03/20 02:30 Test Urine Stat Urinalysis and Microscopic Stat Urine Culture Stat Discontinued Medications Nitrofurantoin Macrocrystals (Macrobid 100 Mg Capsule) 100 mg PO NOW ONE Stop: 08/03/20 03:23 Last Admin: 08/03/20 03:26 Dose: 100 mg Documented by: [email or web address] Vital Signs Vital signs: Vital Signs - 8 hr 08/03/20 02:26 08/03/20 03:31 Temperature 98.3 F Pulse Rate 123 H 85 Respiratory Rate 16 14 Blood Pressure 164/95 H 127/59 L Pulse Oximetry 96 99 Medical Decision Making Lab Data Labs: Lab Results 08/03/20 08/03/20 Range/Units 02:30 02:30 Urine Color Bright yellow Urine Appearance Clear Urine pH 6.5 (4.5-8.0) Ur Specific [place] <=1.005 (1.000-1.035) Urine Protein Not Reportable Urine Glucose (UA) Not Reportable Urine Ketones Negative (NEGATIVE) Urine Occult Blood 2+ H (Negative) Urine Nitrate Not Reportable Urine Bilirubin Negative (NEGATIVE) Urine Urobilinogen 1.0 (0.2) E.U./dL Ur Leukocyte Esterase 2+ H (NEGATIVE) Urine RBC None seen (0-5/HPF) Urine WBC 5-10/hpf H (0-5/HPF) Urine Bacteria None seen (None) Ur Culture Indicated? Specimen cultured Micro UA Comment * Urine Test Negative (Negative) MDM Narrative Medical decision making narrative: Urinalysis today somewhat hindered because of the azo of the patient took. She has no signs of pyelonephritis. Urine culture was pending the time of discharge. Will treat the patient based on symptoms and urinalysis findings. Informed patient we will contact her if we need to change her antibiotics. Given 1st dose of antibiotics here in the ER. Sent home prescription for the remainder. She expressed understanding and agreement. Discharge Plan Departure Patient Disposition: Home Clinical Impression: Urinary tract infection Qualifiers: Urinary tract infection type: acute cystitis Hematuria presence: without hematuria Qualified Code(s): N30.00 - Acute cystitis without hematuria Discharge Date/Time: 08/03/20 03:31 Instructions: DI for Urinary Tract Infection (UTI) Activity Restrictions/Additional Instructions: Take the antibiotics as directed. They were electronically transmitted to [facility]. A urine culture was pending at the time of your discharge. We will call you if we need to change any antibiotics. Return to the emergency department for any new or worsening symptoms. Prescriptions: New nitrofurantoin monohyd/m-cryst [Macrobid] 100 mg capsule 100 mg PO Q12H 5 Days Qty: 10 RF: 0 No Action metoclopramide HCl 5 mg tablet 5 mg PO TID Qty: 30 RF: 3 oxycodone-acetaminophen 5-325 mg Tablet 2 tab PO Q4HR PRN (Reason: Pain, Severe (7-10)) Qty: 30 RF: 0 ibuprofen 600 mg Tablet 600 mg PO Q6HR PRN (Reason: As Needed For Fever/Mild Pain) Qty: 30 RF: 0 docusate sodium 250 mg Capsule 250 mg PO DAILY Qty: 20 RF: 0 ferrous gluconate 324 mg (37.5 mg iron) tablet 324 mg PO DAILY Qty: 30 RF: 0 hydrocodone-acetaminophen [[place]] 5-325 mg tablet 1 tab PO Q4-6H PRN (Reason: pain) Qty: 14 RF: 0 hydrocodone-acetaminophen 5-325 mg Tablet 1 tab PO Q4-6H PRN (Reason: Pain (Scale Score 7-10)) RF: 0 hydrocodone-acetaminophen 5-325 mg tablet 1 tab PO Q4-6H PRN (Reason: pain) Qty: 10 RF: 0
[2020-08-03 02:58] LABS: pH Urine UA 6.5 (4.5-8.0)
[2020-08-03 02:59] LABS: Color Urine UA BRIGHT YELLOW
[2020-08-03 03:01] LABS: WBC Urine 5-10/HPF (0-5/HPF)
[2020-08-03 03:03] LABS: Culture Indicated Urine Specimen Cultured
[2020-08-03] MEDS: NITROFURANTOIN ER 100 MG CAPSULE PO (03:26)
[2020-08-03 03:31] VITALS: BP 127/59; PULSE 85; RESP 14; O2SAT 99
== END 2020-08-03 03:31 | disposition home or self-care (01) ==
PROVIDERS: Emergency Provider Emergency Medicine; Family Provider Specialist
DX: N30.00 Acute cystitis without hematuria (principal)
CPT/HCPCS: 81001; 81025; 87086; 99283

== ENCOUNTER → 2021-01-22 10:49 | Outpatient (CLI) | payer OTHER, MEDICAID, SELFPAY ==
[2021-01-22] MEDS: COVID-19 VACC #1, MRNA(MOD) 100 MCG/0.5 ML VIAL IM (10:56)
== END ==
PROVIDERS: Family Provider Specialist; Visit Provider Internal Medicine
DX: Z23 Encounter for immunization (principal)
CPT/HCPCS: 0011A; 91301

== ENCOUNTER → 2021-02-04 11:59 | Outpatient (CLI) | payer OTHER, MEDICAID, SELFPAY ==
[2021-02-04 12:33] LABS: Pregnancy Test Urine Negative (Negative)
== END ==
PROVIDERS: Family Provider Specialist; PCP Registered Nurse; Visit Provider Student in an Organized Health Care Education/Training Program
DX: N34.3 Urethral syndrome, unspecified (principal); N39.0 Urinary tract infection, site not specified
CPT/HCPCS: 81025; 87077; 87086; 87186

== ENCOUNTER → 2021-02-19 10:48 | Outpatient (CLI) | payer OTHER, MEDICAID, SELFPAY ==
[2021-02-19] MEDS: COVID-19 VACC #2, MRNA(MOD) 100 MCG/0.5 ML VIAL IM (10:53)
== END ==
PROVIDERS: Family Provider Specialist; PCP Registered Nurse; Visit Provider Internal Medicine
DX: Z23 Encounter for immunization (principal)
CPT/HCPCS: 0012A; 91301

== ENCOUNTER → 2021-10-20 12:38 | Outpatient (CLI) | payer OTHER, MEDICAID, SELFPAY ==
[2021-10-20 13:44] LABS: Add Manual Diff / Slide Review NO; Basophils Absolute Auto 0 /uL (0-100); Basophils Percent Auto 0.3 % (0-2); Eosinophils Absolute Auto 100 /uL (0-450); Eosinophils Percent Auto 0.6 % (2-4); Hematocrit 42.2 % (36-46); Hemoglobin 13.9 g/dL (12.0-16.0); Lymphocytes Absolute Auto 2200 /uL (1100-4500); Lymphocytes Percent Auto 23.1 % (25-40); Mean Corpuscular HGB Conc 32.9 % (30-36); Mean Corpuscular Hemoglobin 28.9 PG (26-34); Mean Corpuscular Volume 87.8 fL (80-100); Monocytes Absolute Auto 600 /uL (0-900); Monocytes Percent Auto 5.8 % (3-14); Neutrophils Absolute Auto 6800 /uL (1500-7000); Neutrophils Percent Auto 70.2 % (50-75); Platelet Count 298 X10^3/uL (150-400); Red Cell Distribution Width 14.3 % (11.6-14.8); White Blood Cell Count 9.6 X10^3/uL (4.5-11.0)
[2021-10-20 14:04] LABS: Appearance Urine UA CLEAR; Bilirubin Urine UA NEGATIVE (NEGATIVE); Color Urine UA YELLOW; Glucose Urine UA NEGATIVE (Negative); Ketones Urine UA NEGATIVE (NEGATIVE); Leukocyte Esterase Urine UA TRACE (NEGATIVE); Nitrite Urine UA NEGATIVE (Negative); Occult Blood Urine UA NEGATIVE (Negative); Protein Urine UA NEGATIVE (Negative); Specific Gravity Urine UA <=1.005 (1.000-1.035); Urobilinogen Urine UA 0.2 E.U./dL (0.2)
[2021-10-20 14:42] LABS: Bacteria Urine Occasional (0-1); RBC Urine None Seen (0-5/HPF); Squamous Epithelial Cell Urine 0-1 /HPF (0-5/HPF); WBC Urine 0-1/HPF (0-5/HPF)
[2021-10-21 05:22] LABS: Varicella IgG Antibody 2160 index (Immune >165)
[2021-10-21 07:37] LABS: RPR Screen Non Reactive (Non Reactive)
[2021-10-22 15:10] LABS: Hepatitis B Surface Antigen NEGATIVE s/c (NEGATIVE); Rubella Antibody IgG 13.9 IU/mL (>15)
[2021-10-22 15:26] LABS: HIV 1 & 2 Ab/Ag 4th Gen Combo NEGATIVE (NEGATIVE); Hep C Virus Ab w/Reflex Quant NEGATIVE s/c (NEGATIVE)
== END ==
PROVIDERS: Obstetrics & Gynecology; Family Provider Specialist; PCP Registered Nurse; Referring Provider Specialist; Visit Provider Specialist
DX: Z34.80 Encounter for supervision of other normal pregnancy, unspecified trimester (principal)
CPT/HCPCS: 36415; 80055; 81003; 81015; 86787; 86803; 86850; 86900; 86901; 87086; 87389

== ENCOUNTER → 2022-03-13 13:10 | Outpatient (CLI) | payer OTHER, MEDICAID, SELFPAY | PROVIDERS: Family Provider Specialist; PCP Registered Nurse; Visit Provider Physician Assistant | DX: R30.0 Dysuria (principal) | CPT/HCPCS: 81002; 87086 ==

== ENCOUNTER → 2022-10-05 11:18 | Outpatient (ROUT) | payer OTHER, MEDICAID, SELFPAY ==
[2022-10-05 13:14] LABS: Urine N gonorrhoeae NOT DETECTED
[2022-10-05 13:32] LABS: Urine Chlamydia NOT DETECTED
== END ==
PROVIDERS: Family Provider Specialist; PCP Pediatrics; Visit Provider Physician Assistant Medical
DX: Z11.3 Encounter for screening for infections with a predominantly sexual mode of transmission (principal)
CPT/HCPCS: 87491; 87591

== ENCOUNTER → 2023-06-15 13:55 | Outpatient (CLI) | payer OTHER, MEDICAID, SELFPAY | PROVIDERS: Family Provider Specialist; PCP Pediatrics; Visit Provider Nurse Practitioner Family | DX: N39.0 Urinary tract infection, site not specified (principal) | CPT/HCPCS: 81002; 87077; 87086; 87186 ==

== ENCOUNTER → 2023-11-16 15:29 | Outpatient (CLI) | payer OTHER, MEDICAID, SELFPAY ==
[2023-11-16 16:10] LABS: Add Manual Diff / Slide Review NO; Basophils Absolute Auto 0 /uL (0-100); Basophils Percent Auto 0.3 % (0-2); Eosinophils Absolute Auto 200 /uL (0-450); Eosinophils Percent Auto 2.3 % (2-4); Hematocrit 42.3 % (36-46); Hemoglobin 13.8 g/dL (12.0-16.0); Lymphocytes Absolute Auto 2500 /uL (1100-4500); Lymphocytes Percent Auto 27.8 % (25-40); Mean Corpuscular HGB Conc 32.5 % (30-36); Mean Corpuscular Hemoglobin 28.1 PG (26-34); Mean Corpuscular Volume 86.5 fL (80-100); Monocytes Absolute Auto 600 /uL (0-900); Monocytes Percent Auto 6.4 % (3-14); Neutrophils Absolute Auto 5800 /uL (1500-7000); Neutrophils Percent Auto 63.2 % (50-75); Platelet Count 424 X10^3/uL (150-400); Red Blood Cell Count 4.89 X10^6/uL (4.0-5.2); Red Cell Distribution Width 13.9 % (11.6-14.8); White Blood Cell Count 9.1 X10^3/uL (4.5-11.0)
[2023-11-16 16:28] LABS: Alanine Aminotransferase 53 IU/L (<35); Albumin 4.3 g/dL (3.5-5.0); Albumin Globulin Ratio 1.1 (1.0-2.8); Alkaline Phosphatase 69 U/L (38-126); Aspartate Aminotransferase 35 IU/L (14-36); Bilirubin Total 0.5 mg/dL (0.2-1.3); Blood Urea Nitrogen 6 mg/dL (7-17); Calcium 9.3 mg/dL (8.4-10.2); Carbon Dioxide 24 mmol/L (22-32); Chloride 103 mmol/L (98-107); Estimated Glomerular Filt Rate > 60 mL/min (>60); Globulin 3.9 g/dL (1.7-4.1); Glucose 99 mg/dL (70-100); HEMOLYSIS < 15 (0-50); Potassium 4.1 mmol/L (3.4-5.1); Sodium 137 mmol/L (137-145); Total Protein 8.2 g/dL (6.3-8.2)
== END ==
PROVIDERS: Family Provider Specialist; PCP Family Medicine; Referring Provider Family Medicine; Visit Provider Family Medicine
DX: F32.A Depression, unspecified (principal)
CPT/HCPCS: 36415; 80053; 84443; 85025